=== PATIENT | male | born 1995 | race Caucasian/White ===

== ENCOUNTER 2017-03-23 11:46 | Emergency (ER) | payer BC ==
[~2017-03-23] VITALS: Ht 172.7 cm; Wt 85.0 kg
[2017-03-23] MEDS ORDERED: DEPAKOTE250 MG PO (12:11)
[2017-03-23] MEDS ORDERED: KEPPRA750 M2 PO (12:11)
[2017-03-23] MEDS ORDERED: MOTRIN800 MG PO ×2 (12:22→12:49)
[2017-03-23 13:00] VITALS: BP 134/68
== END 2017-03-23 13:00 | disposition home or self-care (01) | DRG 563 ==
LOC: ED 11:46
DX: S83.91XA Sprain of unspecified site of right knee, initial encounter (principal); G40.909 Epilepsy, unspecified, not intractable, without status epilepticus; X50.1XXA Overexertion from prolonged static or awkward postures, initial encounter; Y93.79 Activity, other specified sports and athletics; Y92.89 Other specified places as the place of occurrence of the external cause

== ENCOUNTER 2017-09-05 09:54 | Day surgery (SDC) | payer OTHER ==
[~2017-09-05] VITALS: Ht 172.7 cm; Wt 81.6 kg
[~2017-09-05 09:54] MED LIST: DEPAKOTE250 MG PO; KEPPRA1000 MG PO; KEPPRA500 M2 PO; KEPPRA750 M2 PO; MOTRIN800 MG PO
[2017-09-05] MEDS ORDERED: PERCOCET 10/31 COMBO PO (14:57)
[2017-09-05 16:00] VITALS: BP 128/75
== END 2017-09-05 15:50 | disposition home or self-care (01) | DRG 489 ==
LOC: ORM 09:54
PROVIDERS: ATTEND Orthopaedic Surgery
PROC: 0MRP4KZ Replacement of Left Knee Bursa and Ligament with Nonautologous Tissue Substitute, Percutaneous Endoscopic Approach (ICD-10-PCS; principal; 2017-09-05)
PROC: 0SBD4ZZ Excision of Left Knee Joint, Percutaneous Endoscopic Approach (ICD-10-PCS; 2017-09-05)
PROC: 0SBD4ZZ Excision of Left Knee Joint, Percutaneous Endoscopic Approach (ICD-10-PCS; 2017-09-05)
DX: S83.512A Sprain of anterior cruciate ligament of left knee, initial encounter (principal); M65.862 Other synovitis and tenosynovitis, left lower leg; S83.242A Other tear of medial meniscus, current injury, left knee, initial encounter; S83.282A Other tear of lateral meniscus, current injury, left knee, initial encounter; M94.262 Chondromalacia, left knee; W17.89XA Other fall from one level to another, initial encounter